=== PATIENT | male | born 1945 | race Caucasian/White ===

== ENCOUNTER 2016-04-09 13:02 | Emergency (ER) | payer MEDICARE, OTHER ==
[~2016-04-09] VITALS: Wt 101.2 kg
[~2016-04-09 13:02] MED LIST: ADVAIR 250/501 EA INH; ALBUTEROL0.09 MG/A2 INH; COUMADIN5 M2 PO; DUONEB 3 MG/3 ML3 M1 INH; ECOTRIN325 MG PO; LISINOPRIL10 MG PO; MEDROL DOSEPAK4 MG PO; METOPROLOL SR50 MG PO; MUCINEX600 MG PO; OMEPRAZOLE20 MG PO; PRILOSEC40 M1 PO; SIMVASTATIN80 MG PO; TESSALON PERLE100 MG PO; TOPROL XL50 MG PO; VITAMIN B12500 MCG PO; ZITHROMAX Z-PA250 MG PO
[2016-04-09 13:07] VITALS: BP 146/94
[2016-04-09] MEDS ORDERED: PREDNISONE20 M1 PO (16:02)
[2016-04-09] MEDS ORDERED: VIBRAMYCIN100 MG PO (16:02)
== END 2016-04-09 16:06 | disposition home or self-care (01) ==
LOC: ED 13:02
DX: J40 Bronchitis, not specified as acute or chronic (principal); I10 Essential (primary) hypertension; E78.00 Pure hypercholesterolemia, unspecified; K21.9 Gastro-esophageal reflux disease without esophagitis; F17.200 Nicotine dependence, unspecified, uncomplicated; Z95.1 Presence of aortocoronary bypass graft; Z79.01 Long term (current) use of anticoagulants; Z79.82 Long term (current) use of aspirin

== ENCOUNTER → 2019-01-12 | Outpatient (CLI) | payer OTHER ==
[~2019-01-12] MED LIST changes: +PREDNISONE20 M1 PO; +VIBRAMYCIN100 MG PO
== END | disposition home or self-care (01) ==
LOC: US 06:51
DX: I71.4 Abdominal aortic aneurysm, without rupture (principal); Z72.0 Tobacco use

== ENCOUNTER → 2019-01-25 | Outpatient (CLI) | payer OTHER | END | disposition home or self-care (01) | LOC: CT 07:26 | DX: I71.4 Abdominal aortic aneurysm, without rupture (principal); I10 Essential (primary) hypertension; Z90.89 Acquired absence of other organs ==

== ENCOUNTER 2019-02-03 17:54 | Emergency (ER) | payer OTHER ==
[2019-02-03 17:54] VITALS: BP 146/95
[2019-02-03 18:21] LABS: BASO % 0.3 % (0.0-1.0); EOS # 0.4 10*3/uL (0.0-0.4); EOS % 3.3 % (1.0-4.0); HEMATOCRIT 37.7 % (42.0-52.0); HEMOGLOBIN 12.4 g/dl (14.0-18.0); LYMPH # 3.7 10*3/uL (1.3-4.4); LYMPH % 33.4 % (27.0-41.0); MEAN CELL VOLUME 96.7 fl (80.0-94.0); MEAN CORPUSCULAR HGB 31.8 pg (27.0-31.0); MEAN CORPUSCULAR HGB CONC 32.9 g/dl (33.0-37.0); MEAN PLATELET VOLUME 9.2 fl (9.6-12.3); MONO # 0.7 10*3/uL (0.1-1.0); MONO % 6.7 % (3.0-9.0); NEUT # 6.2 10*3/uL (2.3-7.9); PLATELET COUNT AUTOMATED 249 10*3/uL (130-400); RED CELL DISTRI WIDTH 12.4 % (0-14.5)
[2019-02-03 18:31] LABS: INTERNATIONAL NORM RATIO 0.9 (2.0-3.5)
[2019-02-03 19:00] LABS: ALBUMIN 3.7 gm/dl (3.1-4.5); CREATININE 1.91 mg/dL (0.70-1.30); POTASSIUM 4.3 mmol/L (3.5-5.1); TOTAL PROTEIN 7.7 gm/dL (6.4-8.2)
[2019-02-03 19:47] LABS: BILIRUBIN NEGATIVE (NEGATIVE); BLOOD TRACE-INTACT (NEGATIVE); CLARITY SL CLOUDY (CLEAR); COLOR YELLOW (YELLOW); GLUCOSE NEGATIVE (NEGATIVE); KETONE NEGATIVE (NEGATIVE); LEUKO ESTERASE NEGATIVE (NEGATIVE); NITRITE NEGATIVE (NEGATIVE); SPECIFIC GRAVITY <= 1.005 (1.005-1.030); UROBILINOGEN 0.2 E.U./dl (0.2-1.0)
[2019-02-03 19:51] LABS: BACTERIA TRACE; EPITHELIAL CELLS 0-2; WBC 0-2 wbc/hpf (0-5)
== END 2019-02-03 20:00 | disposition home or self-care (01) ==
LOC: ED 17:54
PROVIDERS: Physician Assistant
DX: R10.32 Left lower quadrant pain (principal); I25.2 Old myocardial infarction; I10 Essential (primary) hypertension; K21.9 Gastro-esophageal reflux disease without esophagitis; J44.9 Chronic obstructive pulmonary disease, unspecified; E78.00 Pure hypercholesterolemia, unspecified; Z79.899 Other long term (current) drug therapy; Z79.2 Long term (current) use of antibiotics; Z79.82 Long term (current) use of aspirin; Z95.1 Presence of aortocoronary bypass graft

== ENCOUNTER 2019-03-19 22:01 | Emergency (ER) | payer OTHER ==
[~2019-03-19] VITALS: Ht 187.9 cm; Wt 107.0 kg
[2019-03-19 22:03] VITALS: BP 115/65
== END 2019-03-19 22:47 | disposition home or self-care (01) ==
LOC: ED 22:01
DX: M25.461 Effusion, right knee (principal); M79.89 Other specified soft tissue disorders; I10 Essential (primary) hypertension; I48.0 Paroxysmal atrial fibrillation; E78.00 Pure hypercholesterolemia, unspecified; K21.9 Gastro-esophageal reflux disease without esophagitis; F17.200 Nicotine dependence, unspecified, uncomplicated; Z95.1 Presence of aortocoronary bypass graft; Z79.82 Long term (current) use of aspirin; Z79.899 Other long term (current) drug therapy; Z79.2 Long term (current) use of antibiotics

== ENCOUNTER 2019-05-19 10:51 | Inpatient (IN) | payer OTHER ==
[~2019-05-19] VITALS: Ht 188 cm; Wt 103.5 kg
[2019-05-19 11:02] VITALS: BP 124/82
[2019-05-19 11:23] LABS: ACT PARTIAL THROMBO TIME 27.5 SECONDS (20.0-32.1)
[2019-05-19 11:34] LABS: ALKALINE PHOSPHATASE 202 U/L (45-117); BUN 15 mg/dl (7-24); CHLORIDE 107 mmol/L (98-107); CREATININE 1.47 mg/dL (0.70-1.30); POTASSIUM 3.5 mmol/L (3.5-5.1); SGOT/AST 13 IU/L (3-35); SGPT/ALT 16 U/L (12-78); SODIUM 140 mmol/L (136-145); TOTAL PROTEIN 7.8 gm/dL (6.4-8.2)
[2019-05-19 11:39] LABS: TROPONIN I < 0.015 ng/ml (<0.045)
[2019-05-19 11:40] LABS: BASO % 0.3 % (0.0-1.0); EOS # 0.4 10*3/uL (0.0-0.4); EOS % 3.4 % (1.0-4.0); HEMATOCRIT 32.7 % (42.0-52.0); HEMOGLOBIN 10.1 g/dl (14.0-18.0); LYMPH # 3.5 10*3/uL (1.3-4.4); MEAN CELL VOLUME 89.8 fl (80.0-94.0); MEAN CORPUSCULAR HGB 27.7 pg (27.0-31.0); MEAN CORPUSCULAR HGB CONC 30.9 g/dl (33.0-37.0); MEAN PLATELET VOLUME 9.3 fl (9.6-12.3); MONO # 0.6 10*3/uL (0.1-1.0); MONO % 5.6 % (3.0-9.0); NEUT # 6.3 10*3/uL (2.3-7.9); NEUT % 58.4 % (47.0-73.0); PLATELET COUNT AUTOMATED 304 10*3/uL (130-400); RED BLOOD COUNT 3.64 10*6/uL (4.50-5.90); RED CELL DISTRI WIDTH 13.5 % (0-14.5); WHITE BLOOD COUNT 10.8 10*3/uL (4.8-10.8)
[2019-05-19 12:03] VITALS: BP 121/70
[2019-05-19] MEDS ORDERED: ASPIRIN CHILDRE81 MG PO (12:03)
--- NOTE | 2019-05-19 12:39 | NUR ---
PT TO CT VIA CART
[2019-05-19 13:32] VITALS: BP 124/73
[2019-05-19 14:54] VITALS: BP 147/91
--- NOTE | 2019-05-19 14:54 | NUR ---
A 73, admitted to 4E, under the services of EFRAIN Aaron MD with a diagnosis of CHF, PLEURAL EFFUSIION. Chief complaint is DYSPNEA. Patient arrived via ambulatory from ER. Monitor applied. Initial assessment completed. Vital signs taken and recorded. EFRAIN AARON MD notified of admission to the unit. Orders received. See assessment for past medical history, medications and allergies. Patient and/or family oriented to unit. [facility] visitation policy reviewed. Clothing/patient valuable form completed. ELVIA DUBOSE
[2019-05-19] MEDS ORDERED: PROTONIX20 MG PO (15:45)
[2019-05-19] MEDS ORDERED: LOPRESSOR25 MG PO (15:46)
[2019-05-19] MEDS ORDERED: LIPITOR80 MG PO (15:47)
[2019-05-19] MEDS ORDERED: VITAMIN B-121000 MC2 PO (15:48)
[2019-05-19] MEDS ORDERED: VITAMIN D33000 UNIT PO (15:50)
--- NOTE | 2019-05-19 16:00 | NUR ---
DR. LEONG HERE TO SEE PATIENT FOR DR. LENNON, ADVISED OF PATIENTS ADMISSION, ORDERS RECEIVED.
--- NOTE | 2019-05-19 16:29 | NUR ---
CALL PLACED TO DR. 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 PHILIPPE, SPOKE WITH ANSWERING SERVICE THEY PAGED HIM.
--- NOTE | 2019-05-19 16:34 | NUR ---
RECEIVED CALL BACK FROM DR. MARTINO, HE ORDERED ECHO IF NONE DONE IN LAST 6 MONTHS, SPOKE TO PATIENT HE VERSED HE HAD ONE, IN MAR 08 OR APR 09 AT [facility], WILL FAX REQUEST TO [facility] FOR RECORDS.
[2019-05-19 20:00] VITALS: BP 135/81
[2019-05-20] VITALS: BP 136/65
--- NOTE | 2019-05-20 01:02 | NUR ---
PT SLEEPING ON LT SIDE, EASY REG RESPIRATIONS ON ROOM AIR. NO EXIDENCE OF DISTRESS. BED IN LOWEST, LOCKED POS, CALL LIGHT WITHIN REACH.
[2019-05-20 06:45] LABS: BASO % 0.4 % (0.0-1.0); EOS # 0.3 10*3/uL (0.0-0.4); EOS % 3.9 % (1.0-4.0); HEMATOCRIT 30.4 % (42.0-52.0); HEMOGLOBIN 9.7 g/dl (14.0-18.0); LYMPH # 2.5 10*3/uL (1.3-4.4); LYMPH % 30.3 % (27.0-41.0); MEAN CELL VOLUME 87.6 fl (80.0-94.0); MEAN CORPUSCULAR HGB CONC 31.9 g/dl (33.0-37.0); MEAN PLATELET VOLUME 9.4 fl (9.6-12.3); MONO # 0.6 10*3/uL (0.1-1.0); MONO % 7.4 % (3.0-9.0); NEUT # 4.7 10*3/uL (2.3-7.9); NEUT % 57.8 % (47.0-73.0); PLATELET COUNT AUTOMATED 300 10*3/uL (130-400); RED BLOOD COUNT 3.47 10*6/uL (4.50-5.90); RED CELL DISTRI WIDTH 13.4 % (0-14.5); WHITE BLOOD COUNT 8.2 10*3/uL (4.8-10.8)
[2019-05-20 07:32] LABS: BUN 14 mg/dl (7-24); CHLORIDE 106 mmol/L (98-107); IRON 32 ug/dL (65-175); POTASSIUM 3.4 mmol/L (3.5-5.1); SODIUM 140 mmol/L (136-145); TOTAL IRON BINDING CAPACITY 307 ug/dl (250-450)
[2019-05-20 07:40] LABS: CREATININE 1.34 mg/dL (0.70-1.30)
[2019-05-20 07:55] LABS: FERRITIN 49.9 ng/mL (22.0-322.0); VITAMIN D, 25-HYDROXY 45.2 ng/mL (30-100)
[2019-05-20 07:59] VITALS: BP 122/80
--- NOTE | 2019-05-20 08:03 | NUR ---
IN TO SEE PATIENT.
--- NOTE | 2019-05-20 11:30 | NUR ---
URINES COLLECTED AND SENT PER ORDER.
[2019-05-20 12:00] VITALS: BP 121/67
[2019-05-20 12:06] LABS: BILIRUBIN NEGATIVE (NEGATIVE); BLOOD TRACE-INTACT (NEGATIVE); CLARITY CLEAR (CLEAR); COLOR YELLOW (YELLOW); GLUCOSE NEGATIVE (NEGATIVE); KETONE NEGATIVE (NEGATIVE); LEUKO ESTERASE NEGATIVE (NEGATIVE); MUCOUS TRACE; NITRITE NEGATIVE (NEGATIVE); UROBILINOGEN 0.2 E.U./dl (0.2-1.0)
[2019-05-20 16:00] VITALS: BP 110/67
--- NOTE | 2019-05-20 19:41 | NUR ---
AT BEDSIDE. PATIENT AWAKE IN BED. A&OX3. DENIES ANY NEEDS AT PRESENT TIME. ICE PROVIDED PER REQUEST. PT REMINDED OF 1.5 L FLUID RESTRICTION. VERBALIZES UNDERSTANDING. WILL MONITOR. CALL LIGHT IN REACH.
[2019-05-20 20:00] VITALS: BP 112/68
[2019-05-21] VITALS: BP 140/88
--- NOTE | 2019-05-21 05:29 | NUR ---
PT FOUND WITH O2 OUT OF NOSE. PT DENIES SOB. REQUESTING TO TAKE IT OFF FOR A WHILE. WILL MONITOR PT ON ROOM AIR. CALL LIGHT IN REACH.
[2019-05-21 06:29] LABS: BASO % 0.5 % (0.0-1.0); EOS # 0.5 10*3/uL (0.0-0.4); EOS % 5.6 % (1.0-4.0); HEMATOCRIT 32.1 % (42.0-52.0); HEMOGLOBIN 9.9 g/dl (14.0-18.0); LYMPH # 2.8 10*3/uL (1.3-4.4); LYMPH % 34.6 % (27.0-41.0); MEAN CELL VOLUME 89.7 fl (80.0-94.0); MEAN CORPUSCULAR HGB 27.7 pg (27.0-31.0); MEAN CORPUSCULAR HGB CONC 30.8 g/dl (33.0-37.0); MEAN PLATELET VOLUME 9.5 fl (9.6-12.3); MONO # 0.6 10*3/uL (0.1-1.0); MONO % 7.8 % (3.0-9.0); NEUT # 4.1 10*3/uL (2.3-7.9); NEUT % 51.3 % (47.0-73.0); PLATELET COUNT AUTOMATED 297 10*3/uL (130-400); RED BLOOD COUNT 3.58 10*6/uL (4.50-5.90); RED CELL DISTRI WIDTH 13.4 % (0-14.5)
[2019-05-21 06:53] LABS: BUN 13 mg/dl (7-24); CHLORIDE 105 mmol/L (98-107); CREATININE 1.35 mg/dL (0.70-1.30); POTASSIUM 4.1 mmol/L (3.5-5.1); SODIUM 137 mmol/L (136-145)
[2019-05-21 08:00] VITALS: BP 132/60
--- NOTE | 2019-05-21 09:00 | NUR ---
Mail Room in to talk to patient. Patient states lives at home alone with his neighbors checking in on him and his family calling him on the telephone. There are 3 steps in the home. Physician: Stephanie Garay Pharmacy: [facility] or [facility] Home health services: currently has [facility] and would like to resume their services upon discharge Patient's level of ADLs: independent Patient has working utilities: yes DME: none Follow-up physician's appointment after d/c: he prefers to make his own follow up appt after discharge Does patient want to access PORTAL?: no Discharge plan discussed with patient. He lives at home alone with his neighbors and family checking in on him. He is independent in his ADLs and ambulation. Discussed home health care services and he states he currently has [facility] and would like to resume those services upon discharge. He would like to see if he needs home O2. Discussed doctor would need to order a home O2 assessment. Notified Dr. Sanon. When medically stable he will be discharged to home with the resumption of his [facility]. He states he will drive himself home as he drove himself here. ANN-MARIE NUÑEZ
[2019-05-21 12:00] VITALS: BP 112/56
--- NOTE | 2019-05-21 13:27 | NUR ---
Vanessa from [place] called stating this patient is 60% service connected and does have travel benefits. Her phone number is [phone] ext [phone]. I told her patient would most likely discharge is about 48 hours. she asked for a call back if patient is interested in transferring to [facility], patient does have travel benefits.
[2019-05-21 16:00] VITALS: BP 117/70
--- NOTE | 2019-05-21 17:10 | NUR ---
PT EVALUATED FOR HOME O2. AT REST VITALS: 117/70, 96% RA, RR 14. HR 66. UPON AMBULATION PT'S SAT INCREASED TO 100%. VITO. WALK WELL. AT NO TIME DID THE PT BECOME DISTRESSED. RETURNED TO ROOM AND A SPOT CHECK SAT WAS 100%. PT DOES NOT QUALIFY FOR HOME O2.
[2019-05-21 20:00] VITALS: BP 116/65
--- NOTE | 2019-05-21 22:05 | NUR ---
PT DENIES ANY NEEDS AT PRESENT TIME.
[2019-05-22] VITALS (7 sets, daily range): BP systolic 96–120; BP diastolic 52–76
--- NOTE | 2019-05-22 00:08 | NUR ---
NOTIFIED OF 17 BEAT RUN OF VTACH. PT ASYMPTOMATIC. STAT EKG ORDERED. INSTRUCTED TO ORDER STAT BMP AND MAG.
[2019-05-22 00:39] LABS: CREATININE 1.47 mg/dL (0.70-1.30); POTASSIUM 3.8 mmol/L (3.5-5.1)
[2019-05-22 06:17] LABS: BASO % 0.4 % (0.0-1.0); EOS # 0.5 10*3/uL (0.0-0.4); EOS % 6.2 % (1.0-4.0); LYMPH # 2.8 10*3/uL (1.3-4.4); LYMPH % 33.9 % (27.0-41.0); MEAN CELL VOLUME 88.5 fl (80.0-94.0); MEAN CORPUSCULAR HGB 26.8 pg (27.0-31.0); MEAN CORPUSCULAR HGB CONC 30.3 g/dl (33.0-37.0); MEAN PLATELET VOLUME 9.2 fl (9.6-12.3); MONO # 0.7 10*3/uL (0.1-1.0); MONO % 8.5 % (3.0-9.0); NEUT # 4.2 10*3/uL (2.3-7.9); NEUT % 50.8 % (47.0-73.0); PLATELET COUNT AUTOMATED 289 10*3/uL (130-400); RED BLOOD COUNT 3.73 10*6/uL (4.50-5.90); RED CELL DISTRI WIDTH 13.5 % (0-14.5); WHITE BLOOD COUNT 8.2 10*3/uL (4.8-10.8)
[2019-05-22 06:46] LABS: ALBUMIN 2.8 gm/dl (3.1-4.5); ALKALINE PHOSPHATASE 162 U/L (45-117); BUN 14 mg/dl (7-24); CHLORIDE 106 mmol/L (98-107); CREATININE 1.38 mg/dL (0.70-1.30); POTASSIUM 3.7 mmol/L (3.5-5.1); SGOT/AST 10 IU/L (3-35); SGPT/ALT 11 U/L (12-78); SODIUM 140 mmol/L (136-145); TOTAL PROTEIN 7.1 gm/dL (6.4-8.2)
--- NOTE | 2019-05-22 08:20 | NUR ---
PT RESTING IN BED. TOLERATED ROUTINE MED WITH NO PROBLEM. NO C/O AT THIS TIME. RESP-EASY AND REGULAR. CALL LIGHT IN REACH. SEE SHIFT ASSESSMENT.
--- NOTE | 2019-05-22 09:00 | NUR ---
Glass Silverer in to see patient. No new needs or request at this time. Discussed if he would like to go to [facility] and he is refusing. He states with the new law that passed he is able to go to a hospital closer to his home and the [place] will pay for it. He states he spoke to his [facility] customer sales representative. When medically stable he will be discharged to home with the resumption of his [facility] services.
--- NOTE | 2019-05-22 10:15 | NUR ---
PT RESTING IN BED. TOLERATING IV MEDICATION. NO C/O AT THIS TIME. CALL LIGHT IN REACH.
--- NOTE | 2019-05-22 13:30 | NUR ---
PT AMBULATORY TO BATHROOM AND BACK TO BED. NO C/O AT THIS TIME. CALL LIGHT IN REACH.
[2019-05-22 13:37] LABS: CREATININE 1.51 mg/dL (0.70-1.30); POTASSIUM 3.9 mmol/L (3.5-5.1)
--- NOTE | 2019-05-22 16:00 | NUR ---
AMBULATORY IN HALLWAY. NO SOB AT THIS TIME.
--- NOTE | 2019-05-22 16:44 | NUR ---
RESTING BACK IN BED. RESP-EASY AND REGULAR. CALL LIGHT IN REACH. SEE SHIFT ASSESSMENT.
--- NOTE | 2019-05-22 20:00 | NUR ---
PT RESTING IN BED. RESP-EASY AND REGULAR. NO C/O AT THIS TIME. CALL LIGHT IN REACH. SEE SHIFT ASSESSMENT.
--- NOTE | 2019-05-22 22:00 | NUR ---
RESTING IN BED. NO C/O. CALL LIGHT IN REACH.
--- NOTE | 2019-05-22 22:00 | NUR ---
PT RESTING IN BED WITH EYES CLOSED. RESP-EASY AND REGULAR. CALL LIGHT IN REACH.
--- NOTE | 2019-05-22 23:10 | NUR ---
PT IN BED, EASILY AROUSABLE. PT DENIES ANY NEEDS AT PRESENT TIME. WILL MONITOR. CALL LIGHT IN REACH.
[2019-05-23] VITALS: BP 113/66
--- NOTE | 2019-05-23 04:14 | NUR ---
PT ASLEEP IN BED. RESPIRATIONS EASY. NO S/S OF DISTRESS NOTED. WILL MONITOR. CALL LIGHT IN REACH.
[2019-05-23 06:30] LABS: BASO % 0.3 % (0.0-1.0); EOS # 0.5 10*3/uL (0.0-0.4); EOS % 6.2 % (1.0-4.0); HEMATOCRIT 32.4 % (42.0-52.0); HEMOGLOBIN 10.1 g/dl (14.0-18.0); LYMPH # 2.4 10*3/uL (1.3-4.4); LYMPH % 31.8 % (27.0-41.0); MEAN CELL VOLUME 88.8 fl (80.0-94.0); MEAN CORPUSCULAR HGB 27.7 pg (27.0-31.0); MEAN CORPUSCULAR HGB CONC 31.2 g/dl (33.0-37.0); MONO # 0.6 10*3/uL (0.1-1.0); MONO % 7.8 % (3.0-9.0); NEUT % 53.6 % (47.0-73.0); PLATELET COUNT AUTOMATED 295 10*3/uL (130-400); RED BLOOD COUNT 3.65 10*6/uL (4.50-5.90); RED CELL DISTRI WIDTH 13.6 % (0-14.5); WHITE BLOOD COUNT 7.5 10*3/uL (4.8-10.8)
[2019-05-23 06:56] LABS: CREATININE 1.48 mg/dL (0.70-1.30); POTASSIUM 3.7 mmol/L (3.5-5.1)
[2019-05-23 08:00] VITALS: BP 118/62
--- NOTE | 2019-05-23 08:00 | NUR ---
SITTING UP AT SIDE OF BED EATING BREAKFAST. RESP-EASY AND REGULAR. NO C/O AT THIS TIME. CALL LIGHT IN REACH. SEE SHIFT ASSESSMENT.
[2019-05-23 08:10] VITALS: BP 120/62
--- NOTE | 2019-05-23 09:00 | NUR ---
[employer] Core Transformer Assembler in to see patient. No new needs or request at this time. When medically stable he will be discharged to home with the resumption of his [facility].
--- NOTE | 2019-05-23 09:45 | NUR ---
CALLED DR. CHAPMAN MADE AWARE PT POTASSIUM LEVEL AND WANTS TO HAVE PO POTASSIUM.
--- NOTE | 2019-05-23 10:00 | NUR ---
PT TOLERATED POTASSIUM PO. NO C/O AT THIS TIME. CALL LIGHT IN REACH.
--- NOTE | 2019-05-23 10:50 | NUR ---
PHYSICAL THERAPY Attempted to see pt for evaluation pt states he has been ambulating into bathroom and up and down hallways on his own. No c/o of imbalance or unsteadiness. Pt does have 3 steps to enter home when asked if pt wanted to perform steps in stairway for practice declined. Stated he is doing fine has no concerns and does not feel he needs any therapy at this time. Spoke w nsg who did state pt has been up amb in hallways w no issues. Will defer PT at this time due to pt request and no concerns from pt or nurse at this time reg functional activity. Jenifer Cook PT
[2019-05-23] MEDS ORDERED: LASIX20 MG PO (13:47)
--- NOTE | 2019-05-23 14:21 | NUR ---
Discharge instructions reviewed with patient/family. Patient receptive and verbalizes understanding. Follow-up care arranged. Written instructions given to patient/family. HEPLOCK REMOVED 2X2 APPLIED. MONITOR REMOVED. ESCORTED VIA WHEELCHAIR FOR DISCHARGE. BI ALCANTAR
--- NOTE | 2019-05-23 15:40 | NUR ---
Spoke to Yolanda at [facility] to resume services. She states they ([facility]) discharged the patient on May 13. She states the patient also called the nurse and stated he didn't need their services anymore.
== END 2019-05-23 14:21 | disposition home or self-care (01) | DRG 292 ==
LOC: ED 10:51 → EDHOLD 14:20 → 4E 14:20
PROVIDERS: Emergency Medicine; Hospitalist; Internal Medicine Nephrology; Student in an Organized Health Care Education/Training Program; ADMIT Internal Medicine
DX: I11.0 Hypertensive heart disease with heart failure (principal); N17.9 Acute kidney failure, unspecified; E53.8 Deficiency of other specified B group vitamins; E78.5 Hyperlipidemia, unspecified; D50.9 Iron deficiency anemia, unspecified; R74.8 Abnormal levels of other serum enzymes; E78.00 Pure hypercholesterolemia, unspecified; I50.33 Acute on chronic diastolic (congestive) heart failure; I25.10 Atherosclerotic heart disease of native coronary artery without angina pectoris; E83.42 Hypomagnesemia; K21.9 Gastro-esophageal reflux disease without esophagitis; I48.0 Paroxysmal atrial fibrillation; Z95.1 Presence of aortocoronary bypass graft; Z80.8 Family history of malignant neoplasm of other organs or systems; Z79.82 Long term (current) use of aspirin; Z79.899 Other long term (current) drug therapy; I25.2 Old myocardial infarction

== ENCOUNTER → 2019-06-15 | Outpatient (CLI) | payer OTHER ==
[~2019-06-15] MED LIST changes: +ASPIRIN CHILDRE81 MG PO; +LASIX20 MG PO; +LIPITOR80 MG PO; +LOPRESSOR25 MG PO; +PROTONIX20 MG PO; +VITAMIN B-121000 MC2 PO; +VITAMIN D33000 UNIT PO
[2019-06-15 14:15] LABS: ALBUMIN 3.4 gm/dl (3.1-4.5); BASO % 0.4 % (0.0-1.0); CREATININE 1.53 mg/dL (0.70-1.30); EOS # 0.6 10*3/uL (0.0-0.4); EOS % 6.4 % (1.0-4.0); FREE T4 1.06 ng/dl (0.76-1.46); HEMATOCRIT 35.7 % (42.0-52.0); HEMOGLOBIN 10.9 g/dl (14.0-18.0); LYMPH # 3.9 10*3/uL (1.3-4.4); LYMPH % 40.6 % (27.0-41.0); MEAN CELL VOLUME 88.6 fl (80.0-94.0); MEAN CORPUSCULAR HGB CONC 30.5 g/dl (33.0-37.0); MEAN PLATELET VOLUME 9.1 fl (9.6-12.3); MONO # 0.6 10*3/uL (0.1-1.0); MONO % 5.9 % (3.0-9.0); NEUT # 4.4 10*3/uL (2.3-7.9); NEUT % 46.4 % (47.0-73.0); PLATELET COUNT AUTOMATED 274 10*3/uL (130-400); POTASSIUM 4.1 mmol/L (3.5-5.1); RED BLOOD COUNT 4.03 10*6/uL (4.50-5.90); RED CELL DISTRI WIDTH 13.8 % (0-14.5); TOTAL PROTEIN 8.1 gm/dL (6.4-8.2); WHITE BLOOD COUNT 9.5 10*3/uL (4.8-10.8)
[2019-06-15 14:20] LABS: THYROID STIM HORMONE (HS) 1.3 uIU/ml (0.358-4.75)
== END | disposition home or self-care (01) ==
LOC: LAB 13:13
PROVIDERS: Internal Medicine
DX: I10 Essential (primary) hypertension (principal)

== ENCOUNTER 2019-10-15 09:50 | Inpatient (IN) | payer OTHER ==
[~2019-10-15] VITALS: Ht 188 cm; Wt 103.7 kg
[~2019-10-15 09:50] MED LIST changes: +VITAMIN D325 MCG PO; -VITAMIN D33000 UNIT PO
[2019-10-15 09:57] VITALS: BP 149/85
[2019-10-15 10:23] LABS: BASO % 0.4 % (0.0-1.0); EOS # 0.2 10*3/uL (0.0-0.4); EOS % 3.2 % (1.0-4.0); HEMATOCRIT 32.6 % (42.0-52.0); LYMPH # 2.8 10*3/uL (1.3-4.4); LYMPH % 36.3 % (27.0-41.0); MEAN CELL VOLUME 87.4 fl (80.0-94.0); MEAN CORPUSCULAR HGB 27.9 pg (27.0-31.0); MEAN CORPUSCULAR HGB CONC 31.9 g/dl (33.0-37.0); MEAN PLATELET VOLUME 9.6 fl (9.6-12.3); MONO # 0.5 10*3/uL (0.1-1.0); MONO % 7.1 % (3.0-9.0); NEUT % 52.6 % (47.0-73.0); PLATELET COUNT AUTOMATED 188 10*3/uL (130-400); RED BLOOD COUNT 3.73 10*6/uL (4.50-5.90); RED CELL DISTRI WIDTH 15.9 % (0-14.5); WHITE BLOOD COUNT 7.6 10*3/uL (4.8-10.8)
[2019-10-15 10:34] LABS: ACT PARTIAL THROMBO TIME 25.9 SECONDS (20.0-32.1); INTERNATIONAL NORM RATIO 1.1 (2.0-3.5)
[2019-10-15 10:38] LABS: ALBUMIN 3.6 gm/dl (3.1-4.5); CREATININE 1.54 mg/dL (0.70-1.30); POTASSIUM 3.7 mmol/L (3.5-5.1); TOTAL PROTEIN 7.5 gm/dL (6.4-8.2)
[2019-10-15 10:39] LABS: TROPONIN I 0.018 ng/ml (<0.045)
[2019-10-15 11:25] VITALS: BP 128/81
[2019-10-15] MEDS ORDERED: COLCHICINE0.6 M1 PO (11:45)
[2019-10-15] MEDS ORDERED: LISINOPRIL20 MG PO (11:46)
[2019-10-15] MEDS ORDERED: VITAMIN D250 MCG PO (11:47)
[2019-10-15] MEDS ORDERED: NATURE'S BLEND F1 MG PO (11:48)
[2019-10-15] MEDS ORDERED: FISH OIL CONC1000 M2 PO (11:48)
[2019-10-15 12:00] VITALS: BP 146/83
[2019-10-15 16:00] VITALS: BP 134/70
[2019-10-15 20:00] VITALS: BP 138/87
[2019-10-16] VITALS: BP 141/77
[2019-10-16 06:47] LABS: BASO % 0.3 % (0.0-1.0); EOS # 0.2 10*3/uL (0.0-0.4); EOS % 3.4 % (1.0-4.0); HEMATOCRIT 31.8 % (42.0-52.0); LYMPH # 2.9 10*3/uL (1.3-4.4); MEAN CELL VOLUME 86.9 fl (80.0-94.0); MEAN CORPUSCULAR HGB 27.9 pg (27.0-31.0); MEAN CORPUSCULAR HGB CONC 32.1 g/dl (33.0-37.0); MEAN PLATELET VOLUME 9.2 fl (9.6-12.3); MONO # 0.6 10*3/uL (0.1-1.0); NEUT # 3.2 10*3/uL (2.3-7.9); NEUT % 45.9 % (47.0-73.0); PLATELET COUNT AUTOMATED 172 10*3/uL (130-400); RED BLOOD COUNT 3.66 10*6/uL (4.50-5.90); RED CELL DISTRI WIDTH 15.7 % (0-14.5)
[2019-10-16 07:20] LABS: ACT PARTIAL THROMBO TIME 25.3 SECONDS (20.0-32.1); INTERNATIONAL NORM RATIO 1.1 (2.0-3.5)
[2019-10-16 09:53] LABS: ALBUMIN 3.7 gm/dl (3.1-4.5); CREATININE 1.5 mg/dL (0.70-1.30); POTASSIUM 3.4 mmol/L (3.5-5.1); TOTAL PROTEIN 6.8 gm/dL (6.4-8.2)
[2019-10-16 10:12] LABS: FREE T4 1.43 ng/dl (0.76-1.46); THYROID STIM HORMONE (HS) 0.557 uIU/ml (0.358-4.75)
[2019-10-16 12:00] VITALS: BP 116/68
[2019-10-16 16:00] VITALS: BP 121/72
[2019-10-16 20:00] VITALS: BP 120/75
[2019-10-16 23:48] VITALS: BP 130/71
[2019-10-17 07:44] LABS: ALBUMIN 3.5 gm/dl (3.1-4.5); CREATININE 1.58 mg/dL (0.70-1.30); POTASSIUM 3.3 mmol/L (3.5-5.1); TOTAL PROTEIN 7.3 gm/dL (6.4-8.2)
[2019-10-17 08:00] VITALS: BP 122/72
[2019-10-17 12:00] VITALS: BP 117/61
[2019-10-17 16:00] VITALS: BP 120/72
[2019-10-17 20:00] VITALS: BP 125/72
[2019-10-18] VITALS: BP 105/65
[2019-10-18 05:58] LABS: ALBUMIN 3.4 gm/dl (3.1-4.5); CREATININE 1.62 mg/dL (0.70-1.30); POTASSIUM 3.5 mmol/L (3.5-5.1); TOTAL PROTEIN 7.1 gm/dL (6.4-8.2)
[2019-10-18 08:00] VITALS: BP 126/72
[2019-10-18 12:00] VITALS: BP 115/64
[2019-10-18 12:10] LABS: CREATININE,URINE 73.6 mg/dL (Not Estab.)
[2019-10-18] MEDS ORDERED: MAGNESIUM OXID400 MG PO (14:55)
[2019-10-18] MEDS ORDERED: KLOR-CON M1010 ME1 PO (14:55)
[2019-10-18] MEDS ORDERED: ALLOPURINOL100 MG PO (14:55)
[2019-10-18] MEDS ORDERED: METOPROLOL SUCC50 M1 PO (14:55)
== END 2019-10-18 16:22 | disposition home or self-care (01) | DRG 291 ==
LOC: ED 09:50 → 5E 10:53 → EDHOLD 10:53 → 5E 11:10
PROVIDERS: Emergency Medicine; Internal Medicine; ADMIT Internal Medicine
DX: I13.0 Hypertensive heart and chronic kidney disease with heart failure and stage 1 through stage 4 chronic kidney disease, or unspecified chronic kidney disease (principal); I50.43 Acute on chronic combined systolic (congestive) and diastolic (congestive) heart failure; M10.9 Gout, unspecified; J40 Bronchitis, not specified as acute or chronic; N18.3 Chronic kidney disease, stage 3 (moderate); I48.0 Paroxysmal atrial fibrillation; I71.9 Aortic aneurysm of unspecified site, without rupture; E87.8 Other disorders of electrolyte and fluid balance, not elsewhere classified; E16.2 Hypoglycemia, unspecified; E78.00 Pure hypercholesterolemia, unspecified; K21.9 Gastro-esophageal reflux disease without esophagitis; E53.8 Deficiency of other specified B group vitamins; E78.5 Hyperlipidemia, unspecified; D50.9 Iron deficiency anemia, unspecified; E87.6 Hypokalemia; E83.42 Hypomagnesemia; I44.7 Left bundle-branch block, unspecified; I25.10 Atherosclerotic heart disease of native coronary artery without angina pectoris; I25.5 Ischemic cardiomyopathy; Z95.1 Presence of aortocoronary bypass graft; Z86.79 Personal history of other diseases of the circulatory system; Z87.891 Personal history of nicotine dependence; Z79.82 Long term (current) use of aspirin; Z79.899 Other long term (current) drug therapy

== ENCOUNTER → 2019-10-29 | Outpatient (CLI) | payer OTHER ==
[~2019-10-29] MED LIST changes: +ALLOPURINOL100 MG PO; +COLCHICINE0.6 M1 PO; +FISH OIL CONC1000 M2 PO; +KLOR-CON M1010 ME1 PO; +LISINOPRIL20 MG PO; +MAGNESIUM OXID400 MG PO; +METOPROLOL SUCC50 M1 PO; +NATURE'S BLEND F1 MG PO; +VITAMIN D250 MCG PO
[2019-10-29 11:13] LABS: CREATININE 1.86 mg/dL (0.70-1.30); POTASSIUM 4.1 mmol/L (3.5-5.1)
== END | disposition home or self-care (01) ==
LOC: LAB 10:42
PROVIDERS: Internal Medicine
DX: Z09 Encounter for follow-up examination after completed treatment for conditions other than malignant neoplasm (principal); I11.0 Hypertensive heart disease with heart failure; I50.9 Heart failure, unspecified; I25.10 Atherosclerotic heart disease of native coronary artery without angina pectoris

== ENCOUNTER 2020-02-11 09:41 | Inpatient (IN) | payer OTHER ==
[2020-02-11] VITALS (7 sets, daily range): BP systolic 108–137; BP diastolic 60–88
[~2020-02-11] VITALS: Ht 188 cm; Wt 109.3 kg
[2020-02-11 10:18] LABS: BASO % 0.4 % (0.0-1.0); EOS # 0.5 10*3/uL (0.0-0.4); EOS % 6.5 % (1.0-4.0); HEMATOCRIT 29.5 % (42.0-52.0); LYMPH % 27.9 % (27.0-41.0); MEAN CORPUSCULAR HGB 27.8 pg (27.0-31.0); MEAN CORPUSCULAR HGB CONC 30.5 g/dl (33.0-37.0); MEAN PLATELET VOLUME 9.4 fl (9.6-12.3); MONO # 0.5 10*3/uL (0.1-1.0); MONO % 6.4 % (3.0-9.0); NEUT # 4.2 10*3/uL (2.3-7.9); NEUT % 58.7 % (47.0-73.0); PLATELET COUNT AUTOMATED 179 10*3/uL (130-400); RED BLOOD COUNT 3.24 10*6/uL (4.50-5.90); RED CELL DISTRI WIDTH 15.3 % (0-14.5); WHITE BLOOD COUNT 7.1 10*3/uL (4.8-10.8)
[2020-02-11 10:28] LABS: INTERNATIONAL NORM RATIO 1.1 (2.0-3.5)
[2020-02-11 10:55] LABS: ALBUMIN 3.6 gm/dl (3.1-4.5); CREATININE 2.19 mg/dL (0.70-1.30); POTASSIUM 3.9 mmol/L (3.5-5.1); TROPONIN I 0.025 ng/ml (<0.045)
[2020-02-11 14:22] LABS: THYROID STIM HORMONE (HS) 0.588 uIU/ml (0.358-4.75)
[2020-02-11 14:49] LABS: BILIRUBIN Negative (Negative); BLOOD Negative (Negative); CLARITY Clear (Clear); COLOR Yellow (Yellow); GLUCOSE Negative (Negative); KETONE Negative (Negative); LEUKO ESTERASE Negative (Negative); NITRITE Negative (Negative); PH 5.5 (4.5-8.0); SPECIFIC GRAVITY <= 1.005 (1.001-1.030); UROBILINOGEN 0.2 E.U./dl (0.0-1.0)
[2020-02-11 15:02] LABS: WBC 0-2 wbc/hpf (0-5)
[2020-02-12] VITALS: BP 113/56
[2020-02-12 03:59] VITALS: BP 120/56
[2020-02-12 06:48] LABS: CREATININE 2.08 mg/dL (0.70-1.30); POTASSIUM 4.1 mmol/L (3.5-5.1)
[2020-02-12 08:21] LABS: FERRITIN 22.3 ng/mL (22.0-322.0); VITAMIN D, 25-HYDROXY 49.2 ng/mL (30-100)
[2020-02-12 12:00] VITALS: BP 106/64
[2020-02-12 16:00] VITALS: BP 144/75
[2020-02-12 16:57] LABS: BILIRUBIN Negative (Negative); BLOOD Negative (Negative); CLARITY Clear (Clear); COLOR Yellow (Yellow); GLUCOSE Negative (Negative); KETONE Negative (Negative); LEUKO ESTERASE Negative (Negative); NITRITE Negative (Negative); UROBILINOGEN 0.2 E.U./dl (0.0-1.0)
[2020-02-12 17:04] LABS: BACTERIA TRACE; URINE CREATININE RANDOM 38.3 mg/dL; WBC 0-2 wbc/hpf (0-5)
[2020-02-12 20:00] VITALS: BP 104/54
[2020-02-13] VITALS (8 sets, daily range): BP systolic 87–117; BP diastolic 51–67
[2020-02-13 06:59] LABS: CREATININE 2.13 mg/dL (0.70-1.30)
[2020-02-14 07:02] LABS: BASO % 0.4 % (0.0-1.0); EOS # 0.4 10*3/uL (0.0-0.4); EOS % 4.9 % (1.0-4.0); HEMATOCRIT 29.3 % (42.0-52.0); LYMPH # 2.6 10*3/uL (1.3-4.4); LYMPH % 33.4 % (27.0-41.0); MEAN CORPUSCULAR HGB 27.6 pg (27.0-31.0); MEAN CORPUSCULAR HGB CONC 30.4 g/dl (33.0-37.0); MEAN PLATELET VOLUME 9.7 fl (9.6-12.3); MONO # 0.7 10*3/uL (0.1-1.0); MONO % 8.6 % (3.0-9.0); NEUT # 4.1 10*3/uL (2.3-7.9); NEUT % 52.4 % (47.0-73.0); PLATELET COUNT AUTOMATED 193 10*3/uL (130-400); RED BLOOD COUNT 3.22 10*6/uL (4.50-5.90); RED CELL DISTRI WIDTH 14.8 % (0-14.5); WHITE BLOOD COUNT 7.9 10*3/uL (4.8-10.8)
[2020-02-14 07:30] LABS: CREATININE 2.17 mg/dL (0.70-1.30); POTASSIUM 3.8 mmol/L (3.5-5.1)
[2020-02-14 08:00] VITALS: BP 108/47
[2020-02-14 09:00] VITALS: BP 98/52
[2020-02-14 12:00] VITALS: BP 106/53
[2020-02-14 16:00] VITALS: BP 106/59
[2020-02-14 18:00] VITALS: BP 104/60
[2020-02-14 20:25] VITALS: BP 110/59
[2020-02-15] VITALS: BP 117/74
[2020-02-15 06:45] LABS: CREATININE 2.13 mg/dL (0.70-1.30); POTASSIUM 3.8 mmol/L (3.5-5.1)
[2020-02-15 08:00] VITALS: BP 120/65
[2020-02-15 12:00] VITALS: BP 118/56; BP 148/65
[2020-02-15 16:00] VITALS: BP 112/52
[2020-02-15 20:00] VITALS: BP 120/68
[2020-02-16] VITALS (7 sets, daily range): BP systolic 80–111; BP diastolic 39–65
[2020-02-16 06:17] LABS: BASO % 0.4 % (0.0-1.0); EOS # 0.5 10*3/uL (0.0-0.4); EOS % 6.3 % (1.0-4.0); HEMATOCRIT 28.3 % (42.0-52.0); LYMPH # 2.5 10*3/uL (1.3-4.4); LYMPH % 33.7 % (27.0-41.0); MEAN CELL VOLUME 92.2 fl (80.0-94.0); MEAN CORPUSCULAR HGB 27.7 pg (27.0-31.0); MEAN PLATELET VOLUME 8.6 fl (9.6-12.3); MONO # 0.7 10*3/uL (0.1-1.0); MONO % 9.3 % (3.0-9.0); NEUT # 3.6 10*3/uL (2.3-7.9); PLATELET COUNT AUTOMATED 187 10*3/uL (130-400); RED BLOOD COUNT 3.07 10*6/uL (4.50-5.90); RED CELL DISTRI WIDTH 14.9 % (0-14.5); WHITE BLOOD COUNT 7.3 10*3/uL (4.8-10.8)
[2020-02-16 06:34] LABS: CREATININE 2.08 mg/dL (0.70-1.30); POTASSIUM 3.8 mmol/L (3.5-5.1)
[2020-02-16 09:56] LABS: PTH INTACT 100.3 pg/mL (18.5-88.0)
[2020-02-17] VITALS: BP 111/66
[2020-02-17 08:00] VITALS: BP 99/44
[2020-02-17 12:00] VITALS: BP 100/63
[2020-02-17 15:06] LABS: ORGANISM ID Final report (.)
[2020-02-17 16:00] VITALS: BP 118/68
[2020-02-17 20:00] VITALS: BP 106/67
[2020-02-18] VITALS: BP 128/68
[2020-02-18 06:42] LABS: CREATININE 1.81 mg/dL (0.70-1.30); POTASSIUM 4.2 mmol/L (3.5-5.1)
[2020-02-18 08:00] VITALS: BP 112/70; BP 125/78
[2020-02-18 12:00] VITALS: BP 105/59
[2020-02-18 16:00] VITALS: BP 123/74
[2020-02-18 20:00] VITALS: BP 113/76
[2020-02-19] VITALS: BP 113/63
[2020-02-19 08:00] VITALS: BP 106/54; BP 112/60
[2020-02-19] MEDS ORDERED: LISINOPRIL5 MG PO (13:53)
[2020-02-19] MEDS ORDERED: LASIX20 MG PO (13:53)
[2020-02-19] MEDS ORDERED: METOPROLOL SUCC25 M2 PO (13:53)
[2020-02-19] MEDS ORDERED: ELIQUIS5 M1 PO (13:53)
== END 2020-02-19 14:27 | disposition home or self-care (01) | DRG 291 ==
LOC: ED 09:41 → EDHOLD 11:35 → 5E 11:35
PROVIDERS: Emergency Medicine; Internal Medicine Nephrology; ADMIT Internal Medicine; ATTEND Internal Medicine
DX: I13.0 Hypertensive heart and chronic kidney disease with heart failure and stage 1 through stage 4 chronic kidney disease, or unspecified chronic kidney disease (principal); N17.0 Acute kidney failure with tubular necrosis; I50.23 Acute on chronic systolic (congestive) heart failure; N25.81 Secondary hyperparathyroidism of renal origin; E78.00 Pure hypercholesterolemia, unspecified; I48.0 Paroxysmal atrial fibrillation; K21.9 Gastro-esophageal reflux disease without esophagitis; E53.8 Deficiency of other specified B group vitamins; I25.5 Ischemic cardiomyopathy; I25.10 Atherosclerotic heart disease of native coronary artery without angina pectoris; I27.20 Pulmonary hypertension, unspecified; B35.1 Tinea unguium; E55.9 Vitamin D deficiency, unspecified; M10.9 Gout, unspecified; E78.5 Hyperlipidemia, unspecified; R00.1 Bradycardia, unspecified; I95.9 Hypotension, unspecified; D50.9 Iron deficiency anemia, unspecified; N18.30 Chronic kidney disease, stage 3 unspecified; Z86.79 Personal history of other diseases of the circulatory system; Z95.1 Presence of aortocoronary bypass graft; Z87.891 Personal history of nicotine dependence; Z82.49 Family history of ischemic heart disease and other diseases of the circulatory system; Z80.3 Family history of malignant neoplasm of breast; Z79.82 Long term (current) use of aspirin; Z79.899 Other long term (current) drug therapy

== ENCOUNTER → 2020-11-20 | Outpatient (CLI) | payer OTHER ==
[~2020-11-20] MED LIST changes: +ELIQUIS5 M1 PO; +FEROSUL325 MG PO; +KLOR-CON 1010 ME1 PO; +LISINOPRIL5 MG PO; +METOPROLOL SUCC25 M2 PO
== END | disposition home or self-care (01) ==
LOC: CT 12:37
PROVIDERS: ATTEND Nurse Practitioner Family
DX: K44.9 Diaphragmatic hernia without obstruction or gangrene (principal); K80.20 Calculus of gallbladder without cholecystitis without obstruction; I71.2 Thoracic aortic aneurysm, without rupture; N26.1 Atrophy of kidney (terminal)

== ENCOUNTER → 2020-12-02 | Outpatient (CLI) | payer OTHER | END | disposition home or self-care (01) | LOC: CARD 14:32 | PROVIDERS: ATTEND Nurse Practitioner Family | DX: I42.9 Cardiomyopathy, unspecified (principal) ==

== ENCOUNTER → 2021-07-09 | Outpatient (CLI) | payer MEDICARE | END | disposition home or self-care (01) | LOC: RAD 13:39 | PROVIDERS: ATTEND Internal Medicine | DX: M51.36 Other intervertebral disc degeneration, lumbar region (principal) ==

== ENCOUNTER 2021-08-16 20:40 | Emergency (ER) | payer MEDICARE ==
[~2021-08-16] VITALS: Ht 187.9 cm; Wt 109.8 kg
[2021-08-16 20:42] VITALS: BP 98/62
== END 2021-08-16 23:33 | disposition home or self-care (01) ==
LOC: ED 20:40
DX: S93.401A Sprain of unspecified ligament of right ankle, initial encounter (principal); Z79.899 Other long term (current) drug therapy; Z79.82 Long term (current) use of aspirin; Z87.891 Personal history of nicotine dependence; X50.1XXA Overexertion from prolonged static or awkward postures, initial encounter; Y93.89 Activity, other specified; Y92.89 Other specified places as the place of occurrence of the external cause; Y99.8 Other external cause status

== ENCOUNTER 2022-01-25 08:30 | Emergency (ER) | payer MEDICARE ==
[~2022-01-25] VITALS: Ht 187.9 cm; Wt 105.2 kg
[2022-01-25 08:45] VITALS: BP 123/73
[2022-01-25] MEDS ORDERED: MUCINEX1200 M1 PO (11:42)
== END 2022-01-25 11:52 | disposition home or self-care (01) ==
LOC: ED 08:30
DX: J06.9 Acute upper respiratory infection, unspecified (principal); Z20.822 Contact with and (suspected) exposure to COVID-19; Z79.899 Other long term (current) drug therapy; Z79.82 Long term (current) use of aspirin; Z98.890 Other specified postprocedural states; Z87.891 Personal history of nicotine dependence

== ENCOUNTER → 2022-03-18 | Outpatient (CLI) | payer MEDICARE ==
[~2022-03-18] MED LIST changes: +MUCINEX1200 M1 PO
[2022-03-18 12:26] LABS: URINE CREATININE RANDOM 45.24 mg/dL
[2022-03-18 12:27] LABS: ALKALINE PHOSPHATASE 144 U/L (46-116); BUN 21 mg/dl (9-23); CHLORIDE 104 mmol/L (98-107); POTASSIUM 4.4 mmol/L (3.4-5.1); TOTAL PROTEIN 7.1 gm/dL (6.0-8.0)
[2022-03-18 12:28] LABS: SGPT/ALT < 7 U/L (10-49)
[2022-03-25 20:07] LABS: % FREE PSA 15.2 % (.); FREE PSA 0.831 ng/mL (.)
== END | disposition home or self-care (01) ==
LOC: LAB 11:42
PROVIDERS: ATTEND Internal Medicine
DX: I50.22 Chronic systolic (congestive) heart failure (principal); N18.31 Chronic kidney disease, stage 3a; R97.20 Elevated prostate specific antigen [PSA]; I70.0 Atherosclerosis of aorta; M85.88 Other specified disorders of bone density and structure, other site

== ENCOUNTER 2022-06-01 09:35 | Emergency (ER) | payer MEDICARE ==
[~2022-06-01] VITALS: Ht 187.9 cm; Wt 101.2 kg
[2022-06-01 09:55] VITALS: BP 117/72
== END 2022-06-01 11:10 | disposition home or self-care (01) ==
LOC: ED 09:35
DX: H61.21 Impacted cerumen, right ear (principal); Z98.890 Other specified postprocedural states; Z87.891 Personal history of nicotine dependence; I10 Essential (primary) hypertension; K21.9 Gastro-esophageal reflux disease without esophagitis; J44.9 Chronic obstructive pulmonary disease, unspecified; E78.00 Pure hypercholesterolemia, unspecified

== ENCOUNTER → 2022-08-05 | Outpatient (CLI) | payer MEDICARE | END | disposition home or self-care (01) | LOC: RAD 15:42 | PROVIDERS: ATTEND Internal Medicine Nephrology | DX: M25.852 Other specified joint disorders, left hip (principal); M16.0 Bilateral primary osteoarthritis of hip ==

== ENCOUNTER → 2022-08-20 | Outpatient (CLI) | payer MEDICARE | END | disposition home or self-care (01) | LOC: CT 00:23 | PROVIDERS: ATTEND Internal Medicine | DX: K40.20 Bilateral inguinal hernia, without obstruction or gangrene, not specified as recurrent (principal); M25.552 Pain in left hip; I70.0 Atherosclerosis of aorta ==

== ENCOUNTER 2023-05-16 16:11 | Emergency (ER) | payer OTHER, MEDICARE ==
[~2023-05-16] VITALS: Ht 182.8 cm; Wt 95.3 kg
[~2023-05-16 16:11] MED LIST changes: +ENTRESTO 49 MG1 EACH PO; +IRON325 M1 PO; +TOPROL XL50 M1 PO
[2023-05-16] MEDS ORDERED: Dicyclomine Hydrochloride 20 MG/10 ML OSYR PO STA (16:56)
[2023-05-16] MEDS ORDERED: Lidocaine Hydrochloride 15 ML UDC PO STA (16:56)
[2023-05-16] MEDS ORDERED: MG-AL HYDROXIDE/SIMETICONE 30 ML UDC PO STA (16:56)
[2023-05-16] MEDS ORDERED: Ondansetron Hydrochloride 4 MG/2 ML VIAL IV ONE (17:10)
[2023-05-16 17:19] LABS: BASO % 0.4 % (0.0-1.0); EOS # 0.1 10*3/uL (0.0-0.4); EOS % 1.6 % (1.0-4.0); HEMATOCRIT 36.2 % (42.0-52.0); LYMPH # 2.6 10*3/uL (1.3-4.4); LYMPH % 32.4 % (27.0-41.0); MEAN CELL VOLUME 103.7 fl (80.0-94.0); MEAN CORPUSCULAR HGB 32.1 pg (27.0-31.0); MEAN CORPUSCULAR HGB CONC 30.9 g/dl (33.0-37.0); MEAN PLATELET VOLUME 8.9 fl (9.6-12.3); MONO # 0.5 10*3/uL (0.1-1.0); MONO % 6.4 % (3.0-9.0); NEUT # 4.8 10*3/uL (2.3-7.9); PLATELET COUNT AUTOMATED 213 10*3/uL (130-400); RED BLOOD COUNT 3.49 10*6/uL (4.50-5.90); RED CELL DISTRI WIDTH 15.1 % (0-14.5); WHITE BLOOD COUNT 8.1 10*3/uL (4.8-10.8)
[2023-05-16 17:42] VITALS: BP 94/54
== END 2023-05-16 18:49 | disposition home or self-care (01) ==
LOC: ED 16:11
PROVIDERS: Student in an Organized Health Care Education/Training Program
DX: K29.70 Gastritis, unspecified, without bleeding (principal); K21.9 Gastro-esophageal reflux disease without esophagitis; R11.2 Nausea with vomiting, unspecified; I25.2 Old myocardial infarction; I10 Essential (primary) hypertension; J44.9 Chronic obstructive pulmonary disease, unspecified; E78.00 Pure hypercholesterolemia, unspecified; Z90.49 Acquired absence of other specified parts of digestive tract; Z98.890 Other specified postprocedural states; Z87.891 Personal history of nicotine dependence

== ENCOUNTER 2023-05-20 23:46 | Emergency (ER) | payer OTHER, MEDICARE ==
[~2023-05-20] VITALS: Ht 187.9 cm; Wt 92.1 kg
[2023-05-21] MEDS ORDERED: Ondansetron Hydrochloride 4 MG TAB SL ONE (00:15)
[2023-05-21 00:22] LABS: BASO % 0.1 % (0.0-1.0); EOS # 0.1 10*3/uL (0.0-0.4); EOS % 1.2 % (1.0-4.0); HEMATOCRIT 35.2 % (42.0-52.0); LYMPH # 2.1 10*3/uL (1.3-4.4); MEAN CELL VOLUME 103.5 fl (80.0-94.0); MEAN CORPUSCULAR HGB 32.4 pg (27.0-31.0); MEAN CORPUSCULAR HGB CONC 31.3 g/dl (33.0-37.0); MEAN PLATELET VOLUME 8.2 fl (9.6-12.3); MONO # 0.6 10*3/uL (0.1-1.0); MONO % 6.7 % (3.0-9.0); NEUT # 6.4 10*3/uL (2.3-7.9); NEUT % 68.9 % (47.0-73.0); PLATELET COUNT AUTOMATED 175 10*3/uL (130-400); RED CELL DISTRI WIDTH 15.2 % (0-14.5); WHITE BLOOD COUNT 9.3 10*3/uL (4.8-10.8)
[2023-05-21] MEDS ORDERED: SODIUM CHLORIDE 0.9% 1,000 ML IV ONE ×2 (00:25→01:50)
[2023-05-21 01:08] LABS: POTASSIUM 4.4 mmol/L (3.4-5.1); TOTAL PROTEIN 6.7 gm/dL (6.0-8.0)
[2023-05-21] MEDS ORDERED: HYDROmorphONE Hydrochloride 0.5 MG/0.5 ML SYRINGE IV ONE ×2 (01:20→03:00)
[2023-05-21] MEDS ORDERED: Ondansetron Hydrochloride 4 MG/2 ML VIAL IV ONE (01:35)
[2023-05-21] MEDS ORDERED: MORPHINE Sulfate 2 MG/ML SYR IV ONE ×2 (07:45→13:35)
[2023-05-21 17:02] VITALS: BP 101/63
== END 2023-05-21 16:00 | disposition short-term general hospital (02) ==
LOC: ED 23:46
PROVIDERS: Internal Medicine
DX: K85.10 Biliary acute pancreatitis without necrosis or infection (principal); K80.20 Calculus of gallbladder without cholecystitis without obstruction; R79.89 Other specified abnormal findings of blood chemistry; E87.1 Hypo-osmolality and hyponatremia; D53.9 Nutritional anemia, unspecified; R11.0 Nausea; I12.9 Hypertensive chronic kidney disease with stage 1 through stage 4 chronic kidney disease, or unspecified chronic kidney disease; N18.9 Chronic kidney disease, unspecified; N17.9 Acute kidney failure, unspecified; K21.9 Gastro-esophageal reflux disease without esophagitis; J44.9 Chronic obstructive pulmonary disease, unspecified; E78.00 Pure hypercholesterolemia, unspecified; Z98.890 Other specified postprocedural states; Z87.891 Personal history of nicotine dependence

== ENCOUNTER → 2023-12-27 | Outpatient (CLI) | payer MEDICARE ==
[~2023-12-27] MED LIST changes: +GOOD NEIGHBOR500 M2 PO; +HYDROCODONE-AC1 EAC2 PO; +NEURONTIN300 MG PO; +PROTONIX40 MG PO; +Protonix IV; +VITAMIN D350 MC3 PO; +[UNRECOGNIZED DRUG - OTHER] IV
[2023-12-27 14:16] LABS: BASO % 0.3 % (0.0-1.0); EOS # 0.1 10*3/uL (0.0-0.4); HEMATOCRIT 28.4 % (42.0-52.0); LYMPH # 1.4 10*3/uL (1.3-4.4); LYMPH % 24.5 % (27.0-41.0); MEAN CORPUSCULAR HGB 32.3 pg (27.0-31.0); MEAN CORPUSCULAR HGB CONC 29.9 g/dl (33.0-37.0); MEAN PLATELET VOLUME 10.5 fl (9.6-12.3); MONO # 0.4 10*3/uL (0.1-1.0); MONO % 6.3 % (3.0-9.0); NEUT % 67.7 % (47.0-73.0); PLATELET COUNT AUTOMATED 115 10*3/uL (130-400); RED BLOOD COUNT 2.63 10*6/uL (4.50-5.90); RED CELL DISTRI WIDTH 17.7 % (0-14.5); WHITE BLOOD COUNT 5.8 10*3/uL (4.8-10.8)
[2023-12-27 14:17] LABS: POTASSIUM 5.5 mmol/L (3.4-5.1)
== END | disposition home or self-care (01) ==
LOC: LAB 13:20
PROVIDERS: ATTEND Physician Assistant Surgical
DX: I25.810 Atherosclerosis of coronary artery bypass graft(s) without angina pectoris (principal); I50.9 Heart failure, unspecified; N18.4 Chronic kidney disease, stage 4 (severe)

== ENCOUNTER 2024-01-10 13:52 | Emergency (ER) | payer MEDICARE ==
[~2024-01-10] VITALS: Ht 187.9 cm; Wt 104.3 kg
[2024-01-10 15:38] LABS: BASO % 0.2 % (0.0-1.0); EOS # 0.1 10*3/uL (0.0-0.4); EOS % 1.6 % (1.0-4.0); HEMATOCRIT 25.6 % (42.0-52.0); LYMPH # 1.1 10*3/uL (1.3-4.4); LYMPH % 18.8 % (27.0-41.0); MEAN CELL VOLUME 106.7 fl (80.0-94.0); MEAN CORPUSCULAR HGB 34.2 pg (27.0-31.0); MONO # 0.4 10*3/uL (0.1-1.0); MONO % 7.8 % (3.0-9.0); NEUT % 71.2 % (47.0-73.0); PLATELET COUNT AUTOMATED 101 10*3/uL (130-400); RED CELL DISTRI WIDTH 18.7 % (0-14.5); WHITE BLOOD COUNT 5.7 10*3/uL (4.8-10.8)
[2024-01-10 15:47] LABS: POTASSIUM 5.7 mmol/L (3.4-5.1)
[2024-01-10] MEDS ORDERED: MILRINONE LACTATE IV ONE (17:45)
[2024-01-10] MEDS ORDERED: DEXTROSE IV ONE (17:45)
[2024-01-10 19:41] VITALS: BP 99/64
== END 2024-01-10 20:28 | disposition short-term general hospital (02) ==
LOC: ED 13:52
PROVIDERS: Internal Medicine
DX: I13.0 Hypertensive heart and chronic kidney disease with heart failure and stage 1 through stage 4 chronic kidney disease, or unspecified chronic kidney disease (principal); I50.9 Heart failure, unspecified; N17.9 Acute kidney failure, unspecified; I25.2 Old myocardial infarction; K21.9 Gastro-esophageal reflux disease without esophagitis; J44.9 Chronic obstructive pulmonary disease, unspecified; E78.00 Pure hypercholesterolemia, unspecified; M10.9 Gout, unspecified; N18.9 Chronic kidney disease, unspecified; Z98.890 Other specified postprocedural states; Z90.49 Acquired absence of other specified parts of digestive tract; Z87.891 Personal history of nicotine dependence